=== PATIENT | male | born 1985 | race Caucasian/White ===

== ENCOUNTER 2019-07-26 22:25 | Emergency (ER) | payer OTHER, MEDICAID, SELFPAY ==
[2019-07-26 22:25] VITALS: BP 147/96; PULSE 67; RESP 15; TEMP 36.7; O2SAT 100; BMI 27.0
--- NOTE | 2019-07-26 22:36 | ED.ABDPAIN ---
HPI - Abdominal Pain General Chief Complaint: Abdominal Pain Stated Complaint: possible GI bleed Time Seen by Provider: 07/26/19 22:35 Source: patient and old records reviewed Mode of arrival: Ambulatory Limitations: no limitations History of Present Illness HPI narrative: Patient is a 34-year-old male with history of Crohn's disease presenting with abdominal pain and GI bleeding. He says that he had a flare since beginning obviously had 2 courses of prednisone 1 at 10 mg in the other at 20 mg a 50 no really has helped. He has had intense pain over last 3 days not improving. He has had decreased oral intake. Every time he has a bowel movement is bloody. He states he typically gets a flare once a year, he does not take Humira or other medications for it. He denies any fevers or chills. He has also had 2 aortic valves replaced 2 days aortic stenosis. He denies any chest pain or shortness of breath Related Data Home Medications Medication Instructions Recorded Confirmed amoxicillin-pot clavulanate 875 mg PO Q8H #0 05/14/17 [Augmentin] ciprofloxacin HCl 1 drp OPHTH #0 05/14/17 prednisolone acetate [Pred Forte] #0 05/14/17 prednisone 20 mg PO #0 05/14/17 Previous Rx's Medication Instructions Recorded azithromycin [Zithromax Z-Ahmet] 1,000 mg PO QDAY #4 tab 05/14/17 hydrocodone-acetaminophen [Joppa] 1 tab PO Q4H PRN #10 tab 07/27/19 prednisone 10 mg PO DAILY #30 tab 07/27/19 Allergies Allergy/AdvReac Type Severity Reaction Status Date / Time Sulfa (Sulfonamide Allergy Unknown Verified 07/26/19 22:33 Antibiotics) [SULFA (SULFONAMIDE ANTIBIOTICS)] Review of Systems Review of Systems ROS Unobtainable: All systems reviewed & are unremarkable except as noted in HPI and below Constitutional Constitutional: Denies chills, Denies fever(s), Denies lethargy and Denies weakness Eyes Eyes: Denies change in vision, Denies eye discharge, Denies irritation and Denies loss of vision ENT Ears, Nose, Mouth, and Throat: Denies change in voice, Denies neck pain and Denies sore throat Cardiovascular Cardiovascular: Denies dyspnea and Denies dyspnea on exertion Respiratory Respiratory: Denies cough, Denies dyspnea, Denies dyspnea on exertion and Denies wheezing Gastrointestinal Gastrointestinal: Reports as per HPI Genitourinary Genitourinary: Denies hematuria, Denies flank pain, Denies urinary incontinence and Denies urinary urgency Musculoskeletal Musculoskeletal: Denies neck pain Integumentary/Breasts Skin/Breast: Denies pruritus, Denies erythema, Denies rash and Denies wounds Neurologic Neurologic: Denies loss of vision and Denies weakness Allergic/Immunologic Allergic/Immunologic: Denies wheezing [facility] Medical History Crohn's disease (Acute) Surgical History History of aortic valve replacement (Acute) Social History Smoking Status: Unknown if ever smoked Social History Smoking Status: Unknown if ever smoked Exam Initial Vital Signs Initial Vital Signs: Vital Signs Temperature 98.0 F 07/26/19 22:25 Pulse Rate 67 07/26/19 22:25 Respiratory Rate 15 07/26/19 22:25 Blood Pressure 147/96 H 07/26/19 22:25 Pulse Oximetry 100 07/26/19 22:25 GENERAL: Alert young male appears in pain sitting with knees drawn into chest HEENT: Head atraumatic,EOMI, pupils reactive, face symmetric, CARDIOVASCULAR: Regular rate and rhythm without murmurs, rubs or gallops. RESPIRATORY: Breath sounds equal bilaterally, no wheezes rales or rhonchi. ABDOMEN: Soft, lower abdomen tenderness diffusely no guarding no rebound EXTREMITIES: Normal range of motion, no clubbing or edema. Neurovascularly intact NEUROLOGICAL: Alert and oriented x4.Normal gait and speech. Cranial nerves II through XII grossly intact. SKIN: Warm, dry, no laceration, no petechiae, no rashes or lesions. Course Orders Ordered: ED Orders 07/26/19 22:40 Complete Blood Count AUTO DIFF Stat Comprehensive Metabolic Panel Stat Lipase Stat Partial Thromboplastin Time Stat Prothrombin Time INR Stat Type and Screen Stat 07/26/19 22:48 CT abdomen pelvis w con Stat Discontinued Medications Hydrocodone Bitart/Acetaminophen (Vicodin Prepack) 1 bottle MISC SEEINSTR ONE Stop: 07/27/19 00:55 Last Admin: 07/27/19 00:57 Dose: 1 bottle Documented by: HEATH Hydromorphone HCl (Dilaudid) 1 mg IV NOW ONE Stop: 07/27/19 00:02 Last Admin: 07/27/19 00:05 Dose: 1 mg Documented by: ESHA Sodium Chloride (Normal Saline 0.9%) 1,000 mls @ 1,000 mls/hr IV CONT EITAN Last Infusion: 07/26/19 23:52 Dose: 0 mls/hr Documented by: Admin: 07/26/19 22:54 Dose: 1,000 mls/hr Documented by: ESHA Methylprednisolone (Solu-Medrol 125 Mg Vial) 125 mg IV NOW ONE Stop: 07/26/19 22:48 Last Admin: 07/26/19 22:51 Dose: 125 mg Documented by: ESHA Morphine Sulfate (Morphine) 4 mg IV NOW ONE Stop: 07/26/19 22:48 Last Admin: 07/26/19 22:55 Dose: 4 mg Documented by: ESHA Ondansetron HCl (Zofran) 4 mg IV NOW ONE Stop: 07/26/19 22:48 Last Admin: 07/26/19 22:55 Dose: 4 mg Documented by: ESHA Vital Signs Vital signs: Vital Signs - 8 hr 07/26/19 22:25 07/26/19 23:39 07/27/19 00:43 Temperature 98.0 F Pulse Rate 67 68 66 Respiratory Rate 15 18 16 Blood Pressure 147/96 H Blood Pressure [Left Arm] 148/79 H 130/74 Pulse Oximetry 100 98 100 07/27/19 01:02 Temperature Pulse Rate 64 Respiratory Rate Blood Pressure 131/83 Blood Pressure [Left Arm] Pulse Oximetry 100 MDM - Abdominal Pain Lab Data Attestation: I reviewed the patient's lab results. Result diagrams: 07/26/19 22:40 07/26/19 22:40 Labs: Lab Results 07/26/19 07/26/19 07/26/19 Range/Units 22:40 22:40 22:40 WBC 16.9 H (4.5-11.0) X10^3/uL RBC 4.54 (4.5-5.9) X10^6/uL Hgb 13.8 (13.5-17.5) g/dL Hct 41.4 (41-53) % MCV 91.0 (80-100) fL MCH 30.3 (26-34) PG MCHC 33.3 (30-36) % RDW 12.7 (11.6-14.8) % Plt Count 276 (150-400) X10^3/uL Neut % (Auto) 78.1 H (50-75) % Lymph % (Auto) 11.1 L (25-40) % [place] % (Auto) 7.1 (3-14) % Eos % (Auto) 3.4 (2-4) % Baso % (Auto) 0.3 (0-2) % Neut # (Auto) 76947 H (2577-6052) /uL Lymph # (Auto) 1900 (3205-2020) /uL [place] # (Auto) 1200 H (0-900) /uL Eos # (Auto) 600 H (0-450) /uL Baso # (Auto) 100 (0-100) /uL PT 11.1 (10.1-12.7) SECONDS INR 1.0 (0.9-1.3) APTT 33 (26.4-36.2) SECONDS Sodium 140 (137-145) mmol/L Potassium 3.8 (3.4-5.1) mmol/L Chloride 100 (98-107) mmol/L Carbon Dioxide 29 (22-32) mmol/L BUN 15 (9-20) mg/dL Creatinine 1.20 (0.66-1.25) mg/dL Estimated GFR > 60.0 (>60) mL/min BUN/Creatinine Ratio 12.5 (6-22) Glucose 88 (70-100) mg/dL Calcium 8.7 (8.4-10.2) mg/dL Total Bilirubin 0.4 (0.2-1.3) mg/dL AST 20 (17-59) IU/L ALT 12 L (21-72) IU/L Alkaline Phosphatase 67 (38-126) U/L Total Protein 7.1 (6.3-8.2) g/dL Albumin 3.9 (3.5-5.0) g/dL Globulin 3.2 (1.7-4.1) g/dL Albumin/Globulin Ratio 1.2 (1.0-2.8) Lipase 41 (23-300) U/L Blood Type Antibody Screen 07/26/19 Range/Units 22:40 WBC (4.5-11.0) X10^3/uL RBC (4.5-5.9) X10^6/uL Hgb (13.5-17.5) g/dL Hct (41-53) % MCV (80-100) fL MCH (26-34) PG MCHC (30-36) % RDW (11.6-14.8) % Plt Count (150-400) X10^3/uL Neut % (Auto) (50-75) % Lymph % (Auto) (25-40) % [place] % (Auto) (3-14) % Eos % (Auto) (2-4) % Baso % (Auto) (0-2) % Neut # (Auto) (5199-9783) /uL Lymph # (Auto) (7227-9135) /uL [place] # (Auto) (0-900) /uL Eos # (Auto) (0-450) /uL Baso # (Auto) (0-100) /uL PT (10.1-12.7) SECONDS INR (0.9-1.3) APTT (26.4-36.2) SECONDS Sodium (137-145) mmol/L Potassium (3.4-5.1) mmol/L Chloride (98-107) mmol/L Carbon Dioxide (22-32) mmol/L BUN (9-20) mg/dL Creatinine (0.66-1.25) mg/dL Estimated GFR (>60) mL/min BUN/Creatinine Ratio (6-22) Glucose (70-100) mg/dL Calcium (8.4-10.2) mg/dL Total Bilirubin (0.2-1.3) mg/dL AST (17-59) IU/L ALT (21-72) IU/L Alkaline Phosphatase (38-126) U/L Total Protein (6.3-8.2) g/dL Albumin (3.5-5.0) g/dL Globulin (1.7-4.1) g/dL Albumin/Globulin Ratio (1.0-2.8) Lipase (23-300) U/L Blood Type A Positive Antibody Screen Negative Imaging Data CT scan - abdomen: 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 This can be seen inflammatory bowel disease. MDM Narrative Medical decision making narrative: Patient is not anemic he has mild leukocytosis but was previously on 2 rounds of prednisone. He is afebrile. He is tolerating oral fluids pain is better after Dilaudid morphine did not seem to help much. He got 1 dose of Solu-Medrol ED. Perhaps a longer steroid taper may help. He has a GI appointment through [place] in September. At this time no indication for admission. I discussed all findings with the patient and his mother, Education has been performed regarding treatment plan, diagnosis, warning signs and symptoms and all concerns have been addressed. Verbally agree with and understood all of the above. Discharge Plan Departure Patient Disposition: Home Clinical Impression: Crohn's disease Qualifiers: Gastrointestinal tract location: large intestine Digestive disease complication type: with rectal bleeding Qualified Code(s): K50.111 - Crohn's disease of large intestine with rectal bleeding Discharge Date/Time: 07/27/19 01:02 Instructions: Crohn Disease Activity Restrictions/Additional Instructions: *You have been diagnosed with Crohn's disease *What to do: You do need a GI consultation recommend that you call [place] and the GI clinic to see if he can get in any sooner *Continue to take medications as directed Prednisone 40 mg for 3 days, 30 mg for 3 days, 20 mg for 3 days, 10 mg for 3 days [place] 1 tablet every 4-6 hours if needed for pain *Follow up with your primary care provider in 2-3 days *Return to ER if you should have increasing pain, dizziness, lightheadedness, inability tolerate his fluid or any new, worsening or concerning symptoms CONTROLLED SUBSTANCE DISCHARGE (Narcotoic/benzodiazepine/Flexeril/Phenergan) 1. You have been prescribed narcotic medications, it does have acetaminophen/Tylenol/paracetamol in it so do not take extra Tylenol or Tylenol containing products 2. Please understand that we cannot provide further refills of narcotics, benzodiazepines or controlled substances through the ED and her pain management will need to be through your provider. 3. While on these medications you cannot drive or operate heavy machinery. 4. You cannot sign legal documents or perform any duties such as this. 5. As long as you're taking opiate pain medications he should also be taking a stool softener such as Colace, Dulcolax, MiraLAX or prune juice, to help avoid constipation. Prescriptions: New prednisone 10 mg tablet 10 mg PO DAILY Qty: 30 RF: 0 hydrocodone-acetaminophen [Joppa] 5-325 mg tablet 1 tab PO Q4H PRN (Reason: pain) Qty: 10 RF: 0 No Action prednisone 20 MG tablet 20 mg PO Qty: 0 RF: 0 prednisolone acetate [Pred Forte] 1 % drops,suspension Qty: 0 RF: 0 ciprofloxacin HCl 0.3 % drops 1 drp OPHTH Qty: 0 RF: 0 amoxicillin-pot clavulanate [Augmentin] 875 MG/125 MG tablet 875 mg PO Q8H Qty: 0 RF: 0 azithromycin [Zithromax Z-Ahmet] 250 MG tablet 1,000 mg PO QDAY Qty: 4 RF: 0 Referrals: Rodney Roman MD [Non-Staff] -
--- NOTE | 2019-07-26 22:48 | DI.CT.S_ITS ---
PROCEDURE: CT ABDOMEN PELVIS W CON INDICATIONS: lower abdominal pain with history of crohns TECHNIQUE: After the administration of intravenous contrast, 5 mm thick sections acquired from the diaphragm to the symphysis. 5 mm coronal and sagittal reformats were acquired. For radiation dose reduction, the following was used: automated exposure control, adjustment of mA and/or kV according to patient size. COMPARISON: None. FINDINGS: Image quality: Excellent. ABDOMEN: Lung bases: Lung bases are clear. Heart size is normal. Solid organs: Liver is normal in size and enhancement. Gallbladder is within normal. Biliary system is non dilated. Pancreas enhances normally. Spleen is normal in size and enhancement. No adrenal nodules. Kidneys demonstrate normal size and enhancement, without hydronephrosis. Peritoneum and bowel: There is moderate thickening of the descending colon, proximal, mid, and distal sigmoid colon, as well as the rectum. No pericolonic abscess. Bowel loops demonstrate otherwise normal wall thickness and caliber. The appendix is normal. No free fluid or air. Nodes and vessels: No retroperitoneal or mesenteric adenopathy by size criteria. Aorta and inferior vena cava are normal in size. Miscellaneous: No ventral hernias. PELVIS: Genitourinary: Bladder wall thickness is normal. Miscellaneous: No inguinal hernias or adenopathy. Bones: No suspicious bony lesions. No vertebral body compression fractures. IMPRESSION: Colonic thickening as described above, consistent with the given history of Crohn's disease. Dictated by: Jason Hatfield M.D. on 07/27/2019 at 8:24 Approved by: Jason Hatfield M.D. on 07/27/2019 at 8:26
[2019-07-26] MEDS: methylPREDNISolone 125 MG/2 ML VIAL IV (22:51)
[2019-07-26] MEDS: SODIUM CHLORIDE 0.9% 1,000 ML 1000 ML IV (22:54)
[2019-07-26] MEDS: ONDANSETRON 4 MG/2 ML INJ IV (22:55)
[2019-07-26] MEDS: MORPHINE 4 MG/ML INJ IV (22:55)
[2019-07-26 22:56] LABS: Add Manual Diff / Slide Review NO; Basophils Absolute Auto 100 /uL (0-100); Basophils Percent Auto 0.3 % (0-2); Eosinophils Absolute Auto 600 /uL (0-450); Eosinophils Percent Auto 3.4 % (2-4); Hematocrit 41.4 % (41-53); Hemoglobin 13.8 g/dL (13.5-17.5); Lymphocytes Absolute Auto 1900 /uL (1100-4500); Lymphocytes Percent Auto 11.1 % (25-40); Mean Corpuscular HGB Conc 33.3 % (30-36); Mean Corpuscular Hemoglobin 30.3 PG (26-34); Monocytes Absolute Auto 1200 /uL (0-900); Monocytes Percent Auto 7.1 % (3-14); Neutrophils Absolute Auto 13200 /uL (1500-7000); Neutrophils Percent Auto 78.1 % (50-75); Platelet Count 276 X10^3/uL (150-400); Prothrombin Time 11.1 SECONDS (10.1-12.7); Red Blood Cell Count 4.54 X10^6/uL (4.5-5.9); Red Cell Distribution Width 12.7 % (11.6-14.8); White Blood Cell Count 16.9 X10^3/uL (4.5-11.0)
[2019-07-26 22:59] LABS: PTT Partial Thromboplastin Tim 33 SECONDS (26.4-36.2)
[2019-07-26 23:08] LABS: Alanine Aminotransferase 12 IU/L (21-72); Albumin 3.9 g/dL (3.5-5.0); Albumin Globulin Ratio 1.2 (1.0-2.8); Alkaline Phosphatase 67 U/L (38-126); Aspartate Aminotransferase 20 IU/L (17-59); BUN Creatinine Ratio 12.5 (6-22); Bilirubin Total 0.4 mg/dL (0.2-1.3); Blood Urea Nitrogen 15 mg/dL (9-20); Calcium 8.7 mg/dL (8.4-10.2); Carbon Dioxide 29 mmol/L (22-32); Chloride 100 mmol/L (98-107); Estimated Glomerular Filt Rate > 60.0 mL/min (>60); Globulin 3.2 g/dL (1.7-4.1); Glucose 88 mg/dL (70-100); HEMOLYSIS < 15 (0-50); Lipase 41 U/L (23-300); Potassium 3.8 mmol/L (3.4-5.1); Sodium 140 mmol/L (137-145); Total Protein 7.1 g/dL (6.3-8.2)
[2019-07-26 23:39] VITALS: BP 148/79; PULSE 68; RESP 18; O2SAT 98
[2019-07-27] MEDS: HYDROMORPHONE 1 MG INJ IV (00:05)
[2019-07-27 00:43] VITALS: BP 130/74; PULSE 66; RESP 16; O2SAT 100
[2019-07-27] MEDS: HYDROCODONE/ACET 5/325 PREPACK 1 BOTTLE MISC (00:57)
[2019-07-27 01:02] VITALS: BP 131/83; PULSE 64; O2SAT 100
== END 2019-07-27 01:02 | disposition home or self-care (01) ==
PROVIDERS: Emergency Provider Emergency Medicine
DX: K50.111 Crohn's disease of large intestine with rectal bleeding (principal)
CPT/HCPCS: 36591; 74177; 80053; 83690; 85025; 85610; 85730; 86850; 86900; 86901; 96361; 96374; 96375; 99283; 99285; J1170; J2270; J2405; J2930; Q9967

== ENCOUNTER 2019-07-29 15:45 | Emergency (ER) | payer OTHER, MEDICAID, SELFPAY ==
[2019-07-29 16:07] VITALS: BP 154/83; PULSE 69; RESP 16; TEMP 38.1; O2SAT 100; BMI 27.0
[2019-07-29] MEDS: KETOROLAC 60 MG/2 ML VIAL 15 MG IV (16:34)
[2019-07-29] MEDS: ONDANSETRON 4 MG/2 ML INJ IV (16:35)
[2019-07-29 16:37] LABS: Add Manual Diff / Slide Review NO; Basophils Absolute Auto 100 /uL (0-100); Basophils Percent Auto 0.4 % (0-2); Eosinophils Absolute Auto 100 /uL (0-450); Eosinophils Percent Auto 0.7 % (2-4); Hematocrit 39.9 % (41-53); Hemoglobin 13.4 g/dL (13.5-17.5); Lymphocytes Absolute Auto 1200 /uL (1100-4500); Lymphocytes Percent Auto 7.6 % (25-40); Mean Corpuscular HGB Conc 33.7 % (30-36); Monocytes Absolute Auto 1000 /uL (0-900); Monocytes Percent Auto 6.4 % (3-14); Neutrophils Absolute Auto 13600 /uL (1500-7000); Neutrophils Percent Auto 84.9 % (50-75); Platelet Count 335 X10^3/uL (150-400); Red Blood Cell Count 4.48 X10^6/uL (4.5-5.9); Red Cell Distribution Width 12.8 % (11.6-14.8)
[2019-07-29 16:47] LABS: INR 1.1 (0.9-1.3); Prothrombin Time 12.1 SECONDS (10.1-12.7)
[2019-07-29 16:49] LABS: PTT Partial Thromboplastin Tim 32 SECONDS (26.4-36.2)
[2019-07-29 16:54] LABS: Alanine Aminotransferase 22 IU/L (21-72); Albumin 4.1 g/dL (3.5-5.0); Albumin Globulin Ratio 1.2 (1.0-2.8); Alkaline Phosphatase 71 U/L (38-126); Aspartate Aminotransferase 26 IU/L (17-59); Bilirubin Total 0.5 mg/dL (0.2-1.3); Blood Urea Nitrogen 15 mg/dL (9-20); Calcium 9.2 mg/dL (8.4-10.2); Carbon Dioxide 27 mmol/L (22-32); Chloride 100 mmol/L (98-107); Estimated Glomerular Filt Rate > 60.0 mL/min (>60); Globulin 3.4 g/dL (1.7-4.1); Glucose 98 mg/dL (70-100); HEMOLYSIS < 15 (0-50); Lipase 29 U/L (23-300); Potassium 3.3 mmol/L (3.4-5.1); Sodium 138 mmol/L (137-145); Total Protein 7.5 g/dL (6.3-8.2)
[2019-07-29 18:00] VITALS: BP 142/80; PULSE 64; RESP 18; O2SAT 97
--- NOTE | 2019-07-29 18:03 | ED_ITS ---
HPI - Abdominal Pain General Chief Complaint: Abdominal Pain Stated Complaint: states really bad crohns flare up Time Seen by Provider: 07/29/19 17:59 Source: patient and family Mode of arrival: Ambulatory Limitations: no limitations History of Present Illness HPI narrative: 34-year-old male here for evaluation of a Crohn's flare. Patient does have a known history of Crohn's disease. He is not currently under the care by any GI provider. He also has a medical history complicated by aortic valve replacement secondary to aortic stenosis. His 1st surgery was when he was 7 years old. He was seen here in the emergency department several days ago for the same symptoms that he presents with today. Was started on prednisone. Has been taking 40 mg of prednisone for the past couple days. Was also given pain medication. He does have an appointment scheduled with the GI provider at the beginning of September. He does not know the name of this provider. He states that today he was on the [place] from [facility] when he felt like his symptoms worsened with vomiting and bloody/mucous diarrhea. He reports that at the time of my evaluation his symptoms have improved somewhat from that spike in symptoms however he still continues to have abdominal pain. Related Data Home Medications Medication Instructions Recorded Confirmed amoxicillin-pot clavulanate 875 mg PO Q8H #0 05/14/17 [Augmentin] ciprofloxacin HCl 1 drp [facility] #0 05/14/17 prednisolone acetate [Pred Forte] #0 05/14/17 prednisone 20 mg PO #0 05/14/17 Previous Rx's Medication Instructions Recorded azithromycin [Zithromax Z-Ahmet] 1,000 mg PO QDAY #4 tab 05/14/17 hydrocodone-acetaminophen [[place]] 1 tab PO Q4H PRN #10 tab 07/27/19 prednisone 10 mg PO DAILY #30 tab 07/27/19 ondansetron 4 mg PO Q6H PRN #20 tab 07/29/19 oxycodone-acetaminophen [Percocet] 1 tab PO Q4-6H PRN #14 tab 07/29/19 prednisone 20 mg PO DAILY #90 tab 07/29/19 ranitidine HCl [Zantac] 150 mg PO DAILY #30 tab 07/29/19 Allergies Allergy/AdvReac Type Severity Reaction Status Date / Time Sulfa (Sulfonamide Allergy Unknown Verified 07/26/19 22:33 Antibiotics) [SULFA (SULFONAMIDE ANTIBIOTICS)] Review of Systems Constitutional Constitutional: Denies fever(s) and Denies headache(s) Eyes Eyes: Denies blurry vision ENT Ears, Nose, Mouth, and Throat: Denies vertigo and Denies headache(s) Cardiovascular Cardiovascular: Denies chest pain and Denies dyspnea Respiratory Respiratory: Denies dyspnea Gastrointestinal Gastrointestinal: Reports abdominal pain, Reports diarrhea and Reports vomiting Genitourinary Genitourinary: Denies dysuria Musculoskeletal Musculoskeletal: Denies myalgias Integumentary/Breasts Skin/Breast: Denies rash Neurologic Neurologic: Denies vertigo and Denies headache(s) Hematologic/Lymphatic Hematologic/Lymphatic: Denies easy bleeding and Denies easy bruising [facility] Medical History Crohn's disease (Acute) Surgical History History of aortic valve replacement (Acute) Social History Smoking Status: Never smoker Social History Smoking Status: Never smoker Exam Initial Vital Signs Initial Vital Signs: Vital Signs Temperature 100.6 F H 07/29/19 16:07 Pulse Rate 69 07/29/19 16:07 Respiratory Rate 16 07/29/19 16:07 Blood Pressure 154/83 H 07/29/19 16:07 Pulse Oximetry 100 07/29/19 16:07 Const General: cooperative, well developed and well groomed Orientation: alert, awake and oriented x3 HENMT Head: normal to inspection and normocephalic Resp Effort & Inspection: normal respiratory effort Auscultation: clear to auscultation bilaterally Cardio Rate: regular rate Rhythm: regular rhythm GI Inspection: non-distended Palpation: soft and tender (Generalized tenderness) Skin Lesions: no lesions Rashes: no rashes Neuro General: alert and awake Cognition: normal cognition Speech: speech normal Extrem General: normal to inspection and capillary refill normal Psych Appearance: grossly normal and well kempt Course Orders Ordered: ED Orders 07/29/19 16:20 Complete Blood Count AUTO DIFF Stat Comprehensive Metabolic Panel Stat Lipase Stat Partial Thromboplastin Time Stat Prothrombin Time INR Stat 07/29/19 18:57 Urine Microscopic Stat Discontinued Medications Hydromorphone HCl (Dilaudid) 1 mg IV NOW ONE Stop: 07/29/19 18:13 Last Admin: 07/29/19 18:29 Dose: 1 mg Documented by: YEISON Ketorolac Tromethamine (Toradol) 15 mg IV NOW ONE Stop: 07/29/19 16:31 Last Admin: 07/29/19 16:34 Dose: 15 mg Documented by: SEMAJ Ondansetron HCl (Zofran) 4 mg IV NOW ONE Stop: 07/29/19 16:31 Last Admin: 07/29/19 16:35 Dose: 4 mg Documented by: SEMAJ Ondansetron HCl (Zofran Odt Prepack) 1 bottle MISC SEEINSTR ONE Stop: 07/29/19 19:36 Last Admin: 07/29/19 20:14 Dose: 1 bottle Documented by: JULITA Oxycodone/Acetaminophen (Endocet 5/325 Prepack) 1 bottle MISC SEEINSTR ONE Stop: 07/29/19 19:36 Last Admin: 07/29/19 20:15 Dose: 1 bottle Documented by: JULITA Vital Signs Vital signs: Vital Signs - 8 hr 07/29/19 16:07 07/29/19 18:00 07/29/19 19:08 Temperature 100.6 F H Pulse Rate 69 64 55 L Respiratory Rate 16 18 18 Blood Pressure 154/83 H Blood Pressure [Left Arm] 142/80 H 105/68 Pulse Oximetry 100 97 98 MDM - Abdominal Pain Medical Records Attestation: I reviewed the patient's medical records. Lab Data Attestation: I reviewed the patient's lab results. Result diagrams: 07/29/19 16:20 07/29/19 16:20 Labs: Lab Results 07/29/19 07/29/19 07/29/19 Range/Units 16:20 16:20 16:20 WBC 16.0 H (4.5-11.0) X10^3/uL RBC 4.48 L (4.5-5.9) X10^6/uL Hgb 13.4 L (13.5-17.5) g/dL Hct 39.9 L (41-53) % MCV 89.0 (80-100) fL MCH 30.0 (26-34) PG MCHC 33.7 (30-36) % RDW 12.8 (11.6-14.8) % Plt Count 335 (150-400) X10^3/uL Neut % (Auto) 84.9 H (50-75) % Lymph % (Auto) 7.6 L (25-40) % [place] % (Auto) 6.4 (3-14) % Eos % (Auto) 0.7 L (2-4) % Baso % (Auto) 0.4 (0-2) % Neut # (Auto) 41430 H (2758-7018) /uL Lymph # (Auto) 1200 (3121-6807) /uL [place] # (Auto) 1000 H (0-900) /uL Eos # (Auto) 100 (0-450) /uL Baso # (Auto) 100 (0-100) /uL PT 12.1 (10.1-12.7) SECONDS INR 1.1 (0.9-1.3) APTT 32 (26.4-36.2) SECONDS Sodium 138 (137-145) mmol/L Potassium 3.3 L (3.4-5.1) mmol/L Chloride 100 (98-107) mmol/L Carbon Dioxide 27 (22-32) mmol/L BUN 15 (9-20) mg/dL Creatinine 1.00 (0.66-1.25) mg/dL Estimated GFR > 60.0 (>60) mL/min BUN/Creatinine Ratio 15.0 (6-22) Glucose 98 (70-100) mg/dL Calcium 9.2 (8.4-10.2) mg/dL Total Bilirubin 0.5 (0.2-1.3) mg/dL AST 26 (17-59) IU/L ALT 22 (21-72) IU/L Alkaline Phosphatase 71 (38-126) U/L Total Protein 7.5 (6.3-8.2) g/dL Albumin 4.1 (3.5-5.0) g/dL Globulin 3.4 (1.7-4.1) g/dL Albumin/Globulin Ratio 1.2 (1.0-2.8) Lipase 29 (23-300) U/L Urine RBC (0-5/HPF) Urine WBC (0-5/HPF) Ur Squamous Epith Cells (0-5/HPF) Urine Bacteria (None) Ur Culture Indicated? 07/29/19 Range/Units 18:57 WBC (4.5-11.0) X10^3/uL RBC (4.5-5.9) X10^6/uL Hgb (13.5-17.5) g/dL Hct (41-53) % MCV (80-100) fL MCH (26-34) PG MCHC (30-36) % RDW (11.6-14.8) % Plt Count (150-400) X10^3/uL Neut % (Auto) (50-75) % Lymph % (Auto) (25-40) % [place] % (Auto) (3-14) % Eos % (Auto) (2-4) % Baso % (Auto) (0-2) % Neut # (Auto) (1134-5094) /uL Lymph # (Auto) (4150-0059) /uL [place] # (Auto) (0-900) /uL Eos # (Auto) (0-450) /uL Baso # (Auto) (0-100) /uL PT (10.1-12.7) SECONDS INR (0.9-1.3) APTT (26.4-36.2) SECONDS Sodium (137-145) mmol/L Potassium (3.4-5.1) mmol/L Chloride (98-107) mmol/L Carbon Dioxide (22-32) mmol/L BUN (9-20) mg/dL Creatinine (0.66-1.25) mg/dL Estimated GFR (>60) mL/min BUN/Creatinine Ratio (6-22) Glucose (70-100) mg/dL Calcium (8.4-10.2) mg/dL Total Bilirubin (0.2-1.3) mg/dL AST (17-59) IU/L ALT (21-72) IU/L Alkaline Phosphatase (38-126) U/L Total Protein (6.3-8.2) g/dL Albumin (3.5-5.0) g/dL Globulin (1.7-4.1) g/dL Albumin/Globulin Ratio (1.0-2.8) Lipase (23-300) U/L Urine RBC None seen (0-5/HPF) Urine WBC 0-1/hpf (0-5/HPF) Ur Squamous Epith Cells 0-1 /hpf (0-5/HPF) Urine Bacteria None seen (None) Ur Culture Indicated? Cult not indicated Point of care testing: Urine Dip Bedside Urine Glucose Negative Bedside Urine Bilirubin - Negative Bedside Urine Ketone +/- 5 Urine Specific [place] 1.010 Bedside Urine Occult Blood - Negative Bedside Urine pH 7.5 Bedside Urine Protein +/- 15 Bedside Urine Urobilinogen - Negative Bedside Urine Nitrite - Negative Bedside Urine Leukocytes - Negative Esterase MDM Narrative Medical decision making narrative: Patient does have an elevated white count today. Does have abdominal tenderness. Had a workup here in the emergency department several days ago for the same symptoms. He is currently on prednisone. Unfortunately we were unable to get in touch with the provider who is scheduled to have an appointment with in September. There is some question as to whether not this is with the [facility] or in other provider. Patient thinks that is with the [place] symptoms however they have no record of this. He states that he has an appointment at [facility] in [place]. I did inform the patient that he needed to call this provide her on Tuesday to make sure that everything is set up so that he could continue to have his appointment. I did discuss the case with the on-call GI provider at [facility] who recommended keeping the patient on 40 mg of prednisone for 7 days and then 30 mg for 7 days and then 20 mg until he sees his provider in September. He did state that if after 7 days at the 40 mg the patient's symptoms were not improved he could extend this longer. I did discuss this with the patient. He was provided a refill of prednisone. Also send home with pain medication and nausea medicines. Patient is nontoxic. I do not feel we need to repeat a CT scan today. Patient expressed understanding and agreement this plan. He was given return precautions Discharge Plan Departure Patient Disposition: Home Clinical Impression: Crohn's disease Discharge Date/Time: 07/29/19 20:22 Instructions: Crohn's Disease (Alternative Therapy), Crohn Disease Activity Restrictions/Additional Instructions: Call your specialist tomorrow to make sure that all of your appointments are set up correctly. Use the prednisone as directed (7 days of 40, 7 days of 30 then 20 until you are seen by the GI provider). return to the ER for any new or worsening symptoms. Prescriptions: New oxycodone-acetaminophen [Percocet] 5-325 mg tablet 1 tab PO Q4-6H PRN (Reason: pain) Qty: 14 RF: 0 ondansetron 4 mg tablet,disintegrating 4 mg PO Q6H PRN (Reason: nausea and vomiting) Qty: 20 RF: 0 ranitidine HCl [Zantac] 150 mg tablet 150 mg PO DAILY Qty: 30 RF: 0 prednisone 20 mg tablet 20 mg PO DAILY Qty: 90 RF: 0 No Action prednisone 20 MG tablet 20 mg PO Qty: 0 RF: 0 prednisolone acetate [Pred Forte] 1 % drops,suspension Qty: 0 RF: 0 ciprofloxacin HCl 0.3 % drops 1 drp OPHTH Qty: 0 RF: 0 amoxicillin-pot clavulanate [Augmentin] 875 MG/125 MG tablet 875 mg PO Q8H Qty: 0 RF: 0 azithromycin [Zithromax Z-Ahmet] 250 MG tablet 1,000 mg PO QDAY Qty: 4 RF: 0 prednisone 10 mg tablet 10 mg PO DAILY Qty: 30 RF: 0 hydrocodone-acetaminophen [Rhinelander] 5-325 mg tablet 1 tab PO Q4H PRN (Reason: pain) Qty: 10 RF: 0
--- NOTE | 2019-07-29 18:16 | PC.NURSE ---
hx +chrons, states, worsening abdominal pain, with vicodin, +hiccups, +nausea ,vomiting with blood. fever/chills for the last 5 days.
[2019-07-29] MEDS: HYDROMORPHONE 1 MG INJ IV (18:29)
[2019-07-29 19:07] LABS: Bacteria Urine None Seen; RBC Urine None Seen (0-5/HPF)
[2019-07-29 19:08] VITALS: BP 105/68; PULSE 55; RESP 18; O2SAT 98
[2019-07-29 19:13] LABS: Culture Indicated Urine Cult Not Indicated; Squamous Epithelial Cell Urine 0-1 /HPF (0-5/HPF); WBC Urine 0-1/HPF (0-5/HPF)
[2019-07-29] MEDS: ONDANSETRON 4 MG ODT PREPACK 1 BOTTLE MISC (20:14)
[2019-07-29] MEDS: OXYCODONE/APAP 5/325 PREPACK 1 BOTTLE MISC (20:15)
== END 2019-07-29 20:22 | disposition home or self-care (01) ==
PROVIDERS: Emergency Medicine; Emergency Provider Emergency Medicine
DX: K50.90 Crohn's disease, unspecified, without complications (principal)
CPT/HCPCS: 80053; 81003; 81015; 83690; 85025; 85610; 85730; 96374; 96375; 99283; 99284; J1170; J1885; J2405

== ENCOUNTER 2019-11-26 18:47 | Emergency (ER) | payer OTHER, MEDICAID, SELFPAY ==
[2019-11-26 18:51] VITALS: BP 150/91; PULSE 62; RESP 18; TEMP 36.3; O2SAT 100; BMI 27.7
--- NOTE | 2019-11-26 18:56 | DI.RAD.S_ITS ---
PROCEDURE: XR HAND RT MIN 3V INDICATIONS: framing nail injury, puncture 2nd MCP TECHNIQUE: 3 views of the hand(s) acquired. COMPARISON: [facility], CR, HAND 2V LEFT, 04/17/2012, 17:53. FINDINGS: Bones: No acute fractures or dislocations. Postoperative changes involving the right second metacarpal. No hardware loosening or failure. Carpal bones are normally aligned. No suspicious bony lesions. Soft tissues: No suspicious soft tissue calcifications. There is diffuse soft tissue swelling of the right hand. IMPRESSION: Right hand soft tissue swelling without fracture or dislocation. No radiopaque soft tissue foreign body. Postoperative changes of the right second metacarpal. Dictated by: Lion Sinclair M.D. on 11/26/2019 at 21:02 Approved by: Lion Sinclair M.D. on 11/26/2019 at 21:04
--- NOTE | 2019-11-26 19:06 | ED.UPPEXIN ---
HPI - Extremity Injury (Upper) General Chief Complaint: Extremity Injury, Upper Stated Complaint: Shot Nail Into Rt Hand At Work Time Seen by Provider: 11/26/19 18:50 Source: patient Mode of arrival: Ambulatory Limitations: no limitations History of Present Illness HPI narrative: 34-year-old male nonsmoker with history of Crohn's disease presents with injury to his right hand. 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 He removed the nail without significant difficulty but since has developed increasing pain and swelling in his hand. He is right-hand dominant, tetanus is not current. He has decreased range of motion secondary to pain. The swelling and discomfort are spreading across to the 3rd MCP and the dorsum of his hand. He has no tenderness with palpation of the palmar surface. He was not wearing a glove MD complaint: injury to: right Onset (ago): hour(s) Other Extremity Injury: Right: hand Other injuries: none Handedness: right Place: work Severity: moderate Relieving factors: none Exacerbating factors: movement of extremity Context: other Associated symptoms: denies other symptoms Related Data Home Medications Medication Instructions Recorded Confirmed amoxicillin-pot clavulanate 875 mg PO Q8H #0 05/14/17 [Augmentin] ciprofloxacin HCl 1 drp OPHTH #0 05/14/17 prednisolone acetate [Pred Forte] #0 05/14/17 prednisone 20 mg PO #0 05/14/17 Previous Rx's Medication Instructions Recorded azithromycin [Zithromax Z-Ahmet] 1,000 mg PO QDAY #4 tab 05/14/17 hydrocodone-acetaminophen [[place]] 1 tab PO Q4H PRN #10 tab 07/27/19 prednisone 10 mg PO DAILY #30 tab 07/27/19 ondansetron 4 mg PO Q6H PRN #20 tab 07/29/19 oxycodone-acetaminophen [Percocet] 1 tab PO Q4-6H PRN #14 tab 07/29/19 prednisone 20 mg PO DAILY #90 tab 07/29/19 ranitidine HCl [Zantac] 150 mg PO DAILY #30 tab 07/29/19 cephalexin [Keflex] 500 mg PO QID 7 Days #28 cap 11/26/19 oxycodone 5 mg PO Q4-6H PRN #10 tab 11/26/19 Allergies Allergy/AdvReac Type Severity Reaction Status Date / Time Sulfa (Sulfonamide Allergy Unknown Verified 11/26/19 18:54 Antibiotics) [SULFA (SULFONAMIDE ANTIBIOTICS)] Review of Systems Constitutional Constitutional: Denies chills, Denies fatigue, Denies fever(s), Denies frequent falls, Denies lethargy and Denies weakness Eyes Eyes: Denies change in vision, Denies eye discharge, Denies irritation and Denies loss of vision ENT Ears, Nose, Mouth, and Throat: Denies change in voice, Denies dizziness, Denies neck pain, Denies sore throat and Denies throat swelling Cardiovascular Cardiovascular: Denies chest pain, Denies irregular heart rhythm, Denies lightheadedness, Denies palpitations, Denies dyspnea, Denies dyspnea on exertion and Denies orthopnea Respiratory Respiratory: Denies cough, Denies dyspnea, Denies dyspnea on exertion and Denies wheezing Gastrointestinal Gastrointestinal: Denies abdominal pain, Denies change in bowel habits, Denies diarrhea, Denies nausea and Denies vomiting Genitourinary Genitourinary: Denies hematuria, Denies flank pain, Denies urinary incontinence and Denies urinary urgency Musculoskeletal Musculoskeletal: Denies back pain, Reports joint swelling, Reports limited range of motion, Denies muscle weakness, Denies neck pain, Denies numbness and Denies tingling Integumentary/Breasts Skin/Breast: Denies pruritus, Denies erythema, Denies rash and Reports wounds Neurologic Neurologic: Denies behavioral changes, Denies confusion, Denies dizziness, Denies frequent falls, Denies loss of vision, Denies numbness, Denies tingling and Denies weakness Psychiatric Psychiatric: Denies anxiety, Denies behavioral changes, Denies confusion, Denies depression, Denies homicidal ideation and Denies suicidal ideation Endocrine Endocrine: Denies fatigue, Denies flushing and Denies palpitations Hematologic/Lymphatic Hematologic/Lymphatic: Denies easy bruising Allergic/Immunologic Allergic/Immunologic: Denies urticaria, Denies throat swelling and Denies wheezing Patient History Medical History Crohn's disease (Acute) Surgical History History of aortic valve replacement (Acute) Social History Smoking Status: Never smoker Smoking Status: Never smoker alcohol intake frequency: holidays/special occasions only Substance Use Type: does not use and marijuana Exam Narrative Exam Narrative: GENERAL: [34] year old patient appears stated age. Well-nourished, well-developed patient, in mild distress. HEAD: Atraumatic. Normocephalic. EYES: Pupils equal round and reactive. Extraocular motions intact. No scleral icterus. No injection or drainage. ENT: Nose without bleeding, purulent drainage. Throat without erythema, tonsillar hypertrophy or exudate. Airway patent. NECK: Trachea midline. Non tender CARDIOVASCULAR: Regular rate and rhythm without murmurs, gallops, or rubs. RESPIRATORY: Clear to auscultation. Breath sounds equal bilaterally. No wheezes, rales, or rhonchi. GASTROINTESTINAL: Abdomen soft, non-tender, nondistended. EXTREMITIES: Small puncture wound on dorsal medial aspect of 2nd metacarpal phalangeal joint of right hand. Tender to palpation with edema but no significant erythema, no exudate or active bleeding. Sensation is intact. Decreased range of motion secondary to pain with swelling extending over to 3rd metacarpophalangeal joint as well as dorsum of the hand. BACK: Nontender without deformity or crepitance. No flank tenderness. NEURO: AOx3. SKIN: No rash or erythema of visible areas other than what is mentioned above. Initial Vital Signs Initial Vital Signs: Vital Signs Temperature 97.4 F L 11/26/19 18:51 Pulse Rate 62 11/26/19 18:51 Respiratory Rate 18 11/26/19 18:51 Blood Pressure 150/91 H 11/26/19 18:51 Pulse Oximetry 100 11/26/19 18:51 Procedures Orthopedic Splinting/Casting Injury #1: Side: right Upper Extremity Injury Location: wrist and hand Upper Extremity Immobilizer: volar splint and wrist splint Post splinting neuro exam: intact Post splinting vascular exam: intact Placed by: Nursing Course Orders Ordered: ED Orders 11/26/19 18:56 XR hand RT min 3V Stat Discontinued Medications Cefazolin Sodium (Keflex 250 Mg Prepack) 1 bottle MISC SEEINSTR ONE Stop: 11/26/19 19:53 Last Admin: 11/26/19 19:59 Dose: 1 bottle Documented by: MICHELLE Diphtheria/Tetanus/Acell Pertussis (Adacel) 0.5 ml IM .ONCE ONE Stop: 11/26/19 18:57 Last Admin: 11/26/19 19:08 Dose: 0.5 ml Documented by: MICHELLE Oxycodone/Acetaminophen (Endocet 5/325 Prepack) 1 bottle MISC SEEINSTR ONE Stop: 11/26/19 19:53 Last Admin: 11/26/19 19:59 Dose: 1 bottle Documented by: MICHELLE Consultations Consultation #1: Discussed with on-call Orthopedics, recommendation for tetanus update, antibiotics, splint, follow-up and return precautions Vital Signs Vital signs: Vital Signs - 8 hr 11/26/19 18:51 11/26/19 20:09 Temperature 97.4 F L Pulse Rate 62 55 L Respiratory Rate 18 16 Blood Pressure 150/91 H Blood Pressure [Right Arm] 147/97 H Pulse Oximetry 100 97 MDM - Extremity Injury (Upper) Imaging Data Extremity x-ray #1: Attestation: I personally reviewed and interpreted this imaging study as follows: My Impression: No fracture or FB Radiologist's Impression: [address] [address] XRay Report Signed Patient: Billy Osborne [facility]#: [id number] : 1985Acct:[id number] Age/Sex: 34 / MDate of Service: 11/26/19 Loc: ED Accession Number: [id number] Procedure: XR hand RT min 3V Ordering Provider: Patrick Singh D.O. PROCEDURE: XR HAND RT MIN 3V INDICATIONS: framing nail injury, puncture 2nd MCP TECHNIQUE: 3 views of the hand(s) acquired. COMPARISON: [facility], , HAND 2V LEFT, 04/17/2012, 17:53. FINDINGS: Bones: No acute fractures or dislocations. Postoperative changes involving the right second metacarpal. No hardware loosening or failure. Carpal bones are normally aligned. No suspicious bony lesions. Soft tissues: No suspicious soft tissue calcifications. There is diffuse soft tissue swelling of the right hand. IMPRESSION: Right hand soft tissue swelling without fracture or dislocation. No radiopaque soft tissue foreign body. Postoperative changes of the right second metacarpal. Dictated by: Lion Sinclair M.D. on 11/26/2019 at 21:02 Approved by: Lion Sinclair M.D. on 11/26/2019 at 21:04 Discharge Plan Departure Patient Disposition: Home Clinical Impression: Puncture wound of hand, right Qualifiers: Encounter type: initial encounter Foreign body presence: without foreign body Qualified Code(s): S61.431A - Puncture wound without foreign body of right hand, initial encounter Discharge Date/Time: 11/26/19 20:10 Instructions: DI for Puncture Wound Activity Restrictions/Additional Instructions: *You have been diagnosed with [puncture wound right hand] *What to do: *Take medications as directed *Follow up with [facility], call for an appointment. Let them know you were seen in the Emergency Department and that we ask that you be seen in follow up *Return to ER if you should have any new, worsening or concerning symptoms, such as [increasing pain, swelling, redness, numbness, tingling, fever, shaking chills or other bothersome symptoms] Prescriptions: New cephalexin [Keflex] 500 mg capsule 500 mg PO QID 7 Days Qty: 28 RF: 0 oxycodone 5 mg tablet 5 mg PO Q4-6H PRN (Reason: pain) Qty: 10 RF: 0 No Action prednisone 20 MG tablet 20 mg PO Qty: 0 RF: 0 prednisolone acetate [Pred Forte] 1 % drops,suspension Qty: 0 RF: 0 ciprofloxacin HCl 0.3 % drops 1 drp OPHTH Qty: 0 RF: 0 amoxicillin-pot clavulanate [Augmentin] 875 MG/125 MG tablet 875 mg PO Q8H Qty: 0 RF: 0 azithromycin [Zithromax Z-Ahmet] 250 MG tablet 1,000 mg PO QDAY Qty: 4 RF: 0 prednisone 10 mg tablet 10 mg PO DAILY Qty: 30 RF: 0 hydrocodone-acetaminophen [[place]] 5-325 mg tablet 1 tab PO Q4H PRN (Reason: pain) Qty: 10 RF: 0 oxycodone-acetaminophen [Percocet] 5-325 mg tablet 1 tab PO Q4-6H PRN (Reason: pain) Qty: 14 RF: 0 ondansetron 4 mg tablet,disintegrating 4 mg PO Q6H PRN (Reason: nausea and vomiting) Qty: 20 RF: 0 ranitidine HCl [Zantac] 150 mg tablet 150 mg PO DAILY Qty: 30 RF: 0 prednisone 20 mg tablet 20 mg PO DAILY Qty: 90 RF: 0 Referrals: Rodney Roman MD [Primary Care Provider] -
[2019-11-26] MEDS: TET,DIPH,PERTUSS(ACELL),VAC/PF 0.5 ML SYRINGE IM (19:08)
[2019-11-26] MEDS: OXYCODONE/APAP 5/325 PREPACK 1 BOTTLE MISC (19:59)
[2019-11-26] MEDS: cephALEXin 250 MG PREPACK 1 BOTTLE MISC (19:59)
[2019-11-26 20:09] VITALS: BP 147/97; PULSE 55; RESP 16; O2SAT 97
== END 2019-11-26 20:10 | disposition home or self-care (01) ==
PROVIDERS: Emergency Provider Emergency Medicine; PCP Family Medicine
DX: S61.431A Puncture wound without foreign body of right hand, initial encounter (principal); W31.89XA Contact with other specified machinery, initial encounter; Z23 Encounter for immunization
CPT/HCPCS: 73130; 90471; 99283; 90715

== ENCOUNTER → 2022-11-25 14:01 | Outpatient (CLI) | payer OTHER, MEDICAID, SELFPAY ==
[2022-11-25 15:32] LABS: Alanine Aminotransferase 26 IU/L (<50); Alkaline Phosphatase 63 U/L (38-126); Aspartate Aminotransferase 31 IU/L (17-59); Bilirubin Total 0.9 mg/dL (0.2-1.3); Blood Urea Nitrogen 17 mg/dL (9-20); Calcium 9.1 mg/dL (8.4-10.2); Carbon Dioxide 30 mmol/L (22-32); Chloride 102 mmol/L (98-107); Cholesterol 203 mg/dL (140-199); Estimated Glomerular Filt Rate > 60 mL/min (>60); Glucose 88 mg/dL (70-100); HDL Cholesterol 57 mg/dL (40-60); HEMOLYSIS < 15 (0-50); LDL Cholesterol Calculated 118 mg/dL (<100); Potassium 4.2 mmol/L (3.4-5.1); Sodium 140 mmol/L (137-145); Total Protein 7.8 g/dL (6.3-8.2); Triglycerides 141 mg/dL (35-150)
[2022-11-25 16:01] LABS: TSH w/ Reflex to FT4 2.11 uIU/mL (0.47-4.68)
[2022-11-25 16:37] LABS: Urine N gonorrhoeae NOT DETECTED
[2022-11-25 16:38] LABS: Urine Chlamydia NOT DETECTED
[2022-11-25 19:29] LABS: Vitamin D 25 Hydroxy (D3) 24.5 ng/mL (30.0-100.0)
[2022-11-25 20:24] LABS: HIV 1 & 2 Ab/Ag 4th Gen Combo NEGATIVE (NEGATIVE)
[2022-11-26 16:58] LABS: Albumin 4.5 g/dL (3.5-5.0); Albumin Globulin Ratio 1.4 (1.0-2.8); Globulin 3.3 g/dL (1.7-4.1)
[2022-11-27 01:36] LABS: HSV 2 IGG AB < 0.91 index (0.00-0.90); HSV1IGG < 0.91 index (0.00-0.90)
[2022-11-27 06:39] LABS: RPR Screen Non Reactive (Non Reactive)
== END ==
PROVIDERS: PCP Physician Assistant; Referring Provider Physician Assistant; Visit Provider Physician Assistant
DX: I10 Essential (primary) hypertension (principal); R19.09 Other intra-abdominal and pelvic swelling, mass and lump; R53.83 Other fatigue; Z11.3 Encounter for screening for infections with a predominantly sexual mode of transmission
CPT/HCPCS: 36415; 80053; 80061; 82306; 84443; 86592; 86695; 86696; 87389; 87491; 87591

== ENCOUNTER 2024-02-14 13:16 | Day surgery (SDC) | payer OTHER, MEDICAID, SELFPAY ==
[2024-02-14] VITALS (8 sets, daily range): BP systolic 148–174; BP diastolic 86–95; PULSE 47–83; RESP 10–18; TEMP 36.7–36.8; O2SAT 96–99; BMI 28.3
--- NOTE | 2024-02-14 13:50 | PM.HP.1 ---
History of Present Illness History of Present Illness Date Patient Seen: 02/14/24 Time Patient Seen: 13:50 Chief complaint: SDC Narrative: Billy is a 39-year-old man who presented with a left inguinal hernia in November. See office note for details. He also has a cardiac condition and was recently cleared by his concreting supervisor for general anesthesia. [facility] Medical History (Updated 02/01/24 @ 15:11 by Leticia Tejeda RN) History of COVID-19 (01/26/22) Kawasaki disease Hx-sudden cardiac arrest Left groin mass Crohn's disease (~2004) Surgical History (Updated 02/01/24 @ 15:11 by Leticia Tejeda RN) S/P TAVR (transcatheter aortic valve replacement) (12/07/21) History of aortic valve replacement Social History Smoking Status: Never smoker alcohol intake: current Meds Home Medications and Allergies Home Medications Medication Instructions Recorded Confirmed Type benzocaine 10 % mucosal gel 1 applic mucous membrane QID PRN 11/11/22 11/21/23 Rx (Anbesol (benzocaine)) mouth irritation #9 grams Allergies Allergy/AdvReac Type Severity Reaction Status Date / Time Sulfa (Sulfonamide Allergy Unknown Verified 11/21/23 15:18 Antibiotics) [SULFA (SULFONAMIDE ANTIBIOTICS)] Exam Resp Effort & Inspection: normal respiratory effort Neuro General: patient alert and patient awake Assessment & Plan Assessment and plan (1) Left inguinal hernia: Status: Acute Plan Once he has been seen by our anesthesia colleagues and cleared for general anesthesia and a laparoscopic surgery we would hopefully perform a laparoscopic left inguinal hernia repair. If he has not cleared for general anesthesia and laparoscopic surgery we will perform an open left inguinal hernia repair.
[2024-02-14] MEDS: LACTATED RINGERS 1,000 ML 42 ML IV ×2 (13:51→17:16)
[2024-02-14] MEDS: ACETAMINOPHEN 325 MG TABLET 975 MG PO (14:05)
[2024-02-14 14:09] LABS: Blood Urea Nitrogen 13 mg/dL (9-20); Calcium 9.6 mg/dL (8.4-10.2); Carbon Dioxide 28 mmol/L (22-32); Chloride 105 mmol/L (98-107); Estimated Glomerular Filt Rate > 60 mL/min (>60); Glucose 89 mg/dL (70-100); HEMOLYSIS < 15 (0-50); Potassium 4.1 mmol/L (3.4-5.1); Sodium 139 mmol/L (137-145)
[2024-02-14] MEDS: CEFAZOLIN 2 GM/100 ML PREMIX 100 ML IV (15:25)
--- NOTE | 2024-02-14 15:46 | SUR.OPER ---
Supine on padded OR bed, head on pillow, arms padded and tucked at sides, legs uncrossed, safety belt at thigh, tape over blanket over lower legs .
[2024-02-14] MEDS: BUPIVACAINE 0.5% (PF) 30 ML, EPINEPHrine 0.15 MG INJ (15:55)
--- NOTE | 2024-02-14 17:06 | PM.OP.1 ---
Operative Date/Time/Diagnoses Date of procedure: 02/14/24 Time of procedure: 17:06 Pre-op diagnosis: Left inguinal hernia Post-op diagnosis: other (Left indirect inguinal hernia and right direct inguinal hernia) Procedure & Clinicians Procedure: Laparoscopic bilateral inguinal hernia repair with mesh Same procedure as scheduled: Yes Surgeon: Masood Thomson [employer]vel Operator: Vinay Chang Anesthesia Type: General Operative Notes Procedure in detail: Surgeon: Masood Thomson MD The patient was given preoperative antibiotics. The patient was brought to the operating room, placed on the table in the supine position with the arms tucked and general anesthesia was induced. The abdomen was prepped and draped in the usual fashion. A time-out was performed. A 1 cm supraumbilical incision was created and dissection was carried down to the fascia. The fascia was scored transversely with cautery. A Peon clamp was used to galeano the peritoneum. The Michael port was placed and the abdomen was insufflated to 15 mmHg. The camera was inserted, there was no evidence of any injury from the entry. 5 mm ports were placed under direct vision in the mid left and mid right abdomen. The patient was positioned in steep Trendelenburg. There was a left indirect inguinal hernia containing a loop of sigmoid colon and a right direct inguinal hernia. We started on the left side. We reduced the sigmoid colon out of the indirect defect. We created a left peritoneal flap. The peritoneum was dissected off the cord structures and the sac was delivered completely out of the hernia defect. A large left Bard mesh was brought in and placed over the defect with the medial edge against Mehrdad's ligament and extending to the midline. We then closed the peritoneal flap with a running 3-0 barbed suture. Next we turned our attention to the right side. The peritoneum was dissected off the right cord structures. The peritoneum and some fatty tissue were dissected out of the direct defect. A large right Bard mesh was brought in and placed over the defect with the medial edge against Mehrdad's ligament and extending to the midline. We then closed the peritoneal flap with a running 3-0 barbed suture. We took one last look around the abdomen and saw no other abnormalities. The suture was removed and accounted for. The 5 mm ports were removed under direct vision. The abdomen was desufflated. The Michael port was removed. Additional local was injected into the fascia and the fascial incision was closed with 2 interrupted 0 Vicryl sutures. The skin incisions were closed with 4 Monocryl, Steri-Strips and Band-Aids. EBL: 10 mL Vinay ALBERTO provided assistance with exposure, retraction and closure of incisions. Post-operative Condition: stable Disposition: PACU
[2024-02-14] MEDS: ONDANSETRON 4 MG/2 ML INJ IV (17:35)
[2024-02-14] MEDS: OXYCODONE IR 5 MG TABLET PO ×2 (17:35→18:04)
== END 2024-02-14 18:18 | disposition home or self-care (01) ==
PROVIDERS: Nurse Anesthetist, Certified Registered; PCP Physician Assistant; Referring Provider Surgery; Visit Provider Surgery
PROC: (CPT 49650; principal; 2024-02-14 14:30)
DX: K40.20 Bilateral inguinal hernia, without obstruction or gangrene, not specified as recurrent (principal)
CPT/HCPCS: 49650; 36415; 80048; J0171; J0330; J0690; J1100; J1885; J2250; J2405; J2704; J3010